=== PATIENT | female | born 1985 | race Caucasian/White ===

== ENCOUNTER 2016-05-26 15:18 | Emergency (ER) | payer BC ==
[~2016-05-26] VITALS: Ht 160 cm; Wt 61.3 kg
[~2016-05-26 15:18] MED LIST: EFFEXOR XR150 MG PO; KLONOPIN1 M2 PO
[2016-05-26] MEDS ORDERED: PREDNISONE20 MG PO (16:06)
[2016-05-26] MEDS ORDERED: FLEXERIL10 MG PO (16:06)
[2016-05-26] MEDS ORDERED: LIDODERM 5% P1 PATCH TD (16:06)
[2016-05-26] MEDS ORDERED: ADDERALL20 MG PO (17:45)
[2016-05-26] MEDS ORDERED: DICLOFENAC SODI50 MG PO (17:46)
[2016-05-26] MEDS ORDERED: DAILY VITE1 EAC1 PO (17:47)
[2016-05-26] MEDS ORDERED: B-COMPLEX-VITA1 EACH PO (17:48)
[2016-05-26] MEDS ORDERED: ASPERCREME 1035.4 GM TP (17:49)
[2016-05-26] MEDS ORDERED: VICKS SINEX15 ML BOTH NARES (17:50)
[2016-05-26] MEDS ORDERED: REWETTING DROPS20 ML BOTH EYES (17:51)
[2016-05-26] MEDS ORDERED: VALIUM5 MG PO (19:07)
[2016-05-26 19:31] VITALS: BP 108/76
== END 2016-05-26 19:32 | disposition home or self-care (01) ==
LOC: EME 15:18
DX: M54.42 Lumbago with sciatica, left side (principal)
CPT/HCPCS: 99281; 99285; J1885; J2930; J3010; J3360